=== PATIENT | male | born 1985 | race Caucasian/White ===

== ENCOUNTER 2020-09-29 23:53 | Emergency (ER) | payer SELFPAY ==
[~2020-09-29] VITALS: Ht 167.7 cm; Wt 63.5 kg
[2020-09-30] MEDS ORDERED: OXYMETAZOLINE (AFRIN) 0.05% NA 30 ML BTL ONE (01:15)
--- NOTE | 2020-09-30 01:23 | ED Cough/URI ---
General Chief Complaint: Cough/Cold/Flu Symptoms Stated Complaint: CONGESTION, Nursing Triage Note: TO ED VIA POV AND AMBULATORY TO ROOM 10 NEGATIVE PRESSURE ROOM UNDER COVID PUI PRECAUTIONS. PT C/O CONGESTION, RUNNY NOSE, COUGH. Sepsis Screen: No Definite Risk Source: patient Exam Limitations: no limitations History of Present Illness Date Seen by Provider: Sep 30, 2020 Time Seen by Provider: 00:15 Initial Comments This 35-year-old male presents to the emergency room with complaints of severe congestion, headache, runny nose, and mild cough for the past few days. He has tried taking ermr-ecn-bdsuucu allergy medications including Claritin. He cannot tell me exactly what the medications were or if they contain decongestants. He is noted to be hypertensive but he denies any history of hypertension. He has no known exposures to influenza or COVID-19. He denies fever, nausea, vomiting, diarrhea, or loss of taste or smell. Allergies and Home Medications Allergies Coded Allergies: No Known Drug Allergies (Unverified , 09/30/20) Patient Home Medication List Home Medication List Reviewed: Yes Review of Systems Review of Systems Constitutional: no symptoms reported EENTM: see HPI Respiratory: see HPI Cardiovascular: no symptoms reported Gastrointestinal: no symptoms reported Genitourinary: no symptoms reported Musculoskeletal: no symptoms reported Skin: no symptoms reported Psychiatric/Neurological: No Symptoms Reported Hematologic/Lymphatic: No Symptoms Reported Immunological/Allergic: no symptoms reported Past Lftvkmo-Kklcqa-Etgnof Hx Past Med/Social Hx: Reviewed Nursing Past Med/Soc Hx Patient Social History Alcohol Use: Regular Use Smoking Status: Current Someday Smoker Type Used: Cigarettes Recent Infectious Disease Expo: No Seasonal Allergies Seasonal Allergies: Yes Past Medical History Surgeries: No Respiratory: No Cardiac: No Neurological: No Genitourinary: No Gastrointestinal: No Musculoskeletal: No Endocrine: No HEENT: No Cancer: No Psychosocial: No Integumentary: No Physical Exam Vital Signs - First Documented 09/30/20 09/30/20 00:26 01:30 Temp 36.1 Pulse 82 Resp 16 B/P (MAP) 165/117 (133) Pulse Ox 99 O2 Delivery Room Air Capillary Refill : Less Than 3 Seconds Height: '" Weight: lbs. oz. 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, no motor/sensory deficits, alert, normal mood/affect, oriented x 3 Skin: normal color, warm/dry Progress/Results/Core Measures Suspected Sepsis Recent Fever Within 48 Hours: No Infection Criteria Present: Suspected New Infection New/Unexplained Altered Menta: No Sepsis Screen: No Definite Risk SIRS Temperature: Pulse: 82 Respiratory Rate: 16 Blood Pressure 165 /117 Mean: 133 Results/Orders Lab Results Laboratory Tests Test 09/30/20 00:20 Range/Units Coronavirus 2018 (SHREE) Negative Negative Micro Results Microbiology 09/30/20 Influenza Types A,B Antigen (ENRRIQUE) - Final, Complete My Orders Orders - KELLY ALAS MD Influenza A And B Antigens (09/30/20 00:26) Covid 19 Inhouse Test (09/30/20 00:26) Oxymetazoline 0.05% Nasal Fritch (Afrin 0. (09/30/20 09:00) Oxymetazoline 0.05% Nasal Fritch (Afrin 0. (09/30/20 01:15) Coronavirus Sars-Cov-2 So 2018 (09/30/20 01:28) Vital Signs/I&O 09/30/20 09/30/20 09/30/20 00:26 00:26 01:30 Temp 36.1 36.1 Pulse 82 78 Resp 16 16 B/P (MAP) 165/117 (133) 154/103 (133) Pulse Ox 99 O2 Delivery Room Air Room Air Room Air Capillary Refill : Less Than 3 Seconds Blood Pressure Mean: 133 Progress Note : Progress Note Rapid flu and rapid Covid were negative. Covid PCR was obtained. Patient was advised not to take any oral decongestant medications due to his hypertension. He was advised to follow-up in 1 to 2 weeks to have his blood pressure checked again. He was given Afrin to try as an alternative decongestant. See discharge instructions for discussion. Departure Impression Primary Impression: Upper respiratory infection Qualified Codes: J06.9 - Acute upper respiratory infection, unspecified Additional Impressions: Person under investigation for COVID-19 Nasal congestion Disposition: 01 HOME, SELF-CARE Condition: Against Medical Advice Departure-Patient Inst. Decision time for Depature: 01:18 Referrals: NO,LOCAL PHYSICIAN (PCP/Family) Primary Care Physician Patient Instructions: Coronavirus Disease 2019 (COVID-19) Overview, Viral Upper Respiratory Infection, Adult (DC) Add. Discharge Instructions: Your congestion is likely due to a viral upper respiratory infection. This may be COVID-19. You should remain in quarantine at home until you know the results of your COVID-19 test. This will likely take 24 to 48 hours to result. Your blood pressure is high. For this reason you should avoid any kxuj-olj-ekgfxas decongestant medications such as phenylephrine. As an alternative, you may use the Afrin nasal spray provided from the ER. Limit this nasal spray to 3 days only. Do not use beyond 3 days. You may continue using antihistamines such as Claritin for allergy symptoms. Make a follow-up appointment with a primary care provider in 1 to 2 weeks to have your blood pressure evaluated again. Your high blood pressure may be caused by lrqc-nzu-jwsuxkx decongestant medications, but your blood pressure needs to be monitored closely. Call with questions or concerns. Return to the emergency room if you have worsening symptoms. All discharge instructions reviewed with patient and/or family. Voiced understanding. Work/School Note: Work Release Form Date Seen in the Emergency Department: Sep 30, 2020 Return to Work: Oct 03, 2020 Other Restrictions Listed Below: If Covid negative, may return to work if no fever for 48 hours. Restrictions: If Covid positive, follow health department instructions for quarantine. KELLY ALAS MD Sep 30, 2020 01:23
[2020-09-30 01:30] VITALS: BP 154/103
[2020-09-30] MEDS ORDERED: OXYMETAZOLINE (AFRIN) 0.05% NA 30 ML BTL SCH (09:00)
== END 2020-09-30 01:30 | disposition home or self-care (01) ==
LOC: ER 23:57
DX: J06.9 Acute upper respiratory infection, unspecified (principal); F17.210 Nicotine dependence, cigarettes, uncomplicated; Z20.822 Contact with and (suspected) exposure to COVID-19
CPT/HCPCS: 87804; 99282; U0002; 87635

== ENCOUNTER 2021-06-29 17:33 | Emergency (ER) | payer SELFPAY ==
[~2021-06-29] VITALS: Ht 167 cm; Wt 68.0 kg
--- OUTSIDE RECORDS SUMMARY | 2021-06-29 17:44 | XMS REPORT | Clinical Summary ---
Author Author [facility] Address Unknown Phone Unavailable Care Team Providers Care Director Of Instructional Technology Name Role Phone PCP Unavailable Allergies Not on File Medications Not on file Active Problems Not on file Social History Date Tobacco Use Types Packs/Day Years Used Never Assessed Sex Assigned at Date Recorded Not on file Last Filed Vital Signs Not on file Plan of Treatment Health Maintenance Due Date Last Done Comments Varicella Vaccines (1 of 01/24/1988 2 - 2-dose childhood series) COVID-19 Vaccine (1) 01/24/1992 Hepatitis C Screening 2005 DTaP,Tdap,and Td Vaccines 2006 (1 - Tdap) MMR Vaccines-Adult 2006 Influenza Vaccine (#1) 2021 Pneumo-Vaccine: 65+Yrs (1 01/24/2052 of 1 - PPSV23) HIB Vaccines Aged Out No longer eligible based on patient's age to complete this topic IPV Vaccines Aged Out No longer eligible based on patient's age to complete this topic Meningococcal Vaccine Aged Out No longer eligib le based on patient's age to complete this topic Pneumo-Vaccine: Peds (0-5 Aged Out No longer el igible based on patient's age to Yrs) & At-Risk Patients complete this topic (6-64 Yrs) Rotavirus Vaccines Aged Out No longer eligible based on patient's age to complete this topic Results Not on filefrom Last 3 Months
[2021-06-29] MEDS ORDERED: ONDANSETRON 4 MG/2 ML (SDV) Z0FRAN IVP ONE (18:00)
[2021-06-29] MEDS ORDERED: LACTATED RINGERS 1,000 ML IV SCH (18:00)
[2021-06-29] MEDS ORDERED: fentaNYL INJ 100 MCG/2 ML AMP IVP ONE (18:00)
--- NOTE | 2021-06-29 18:02 | ED Abdominal Pain ---
General Chief Complaint: Abdominal/GI Problems Stated Complaint: ABD PAIN Source of Information: Patient Exam Limitations: No Limitations History of Present Illness Date Seen by Provider: Jun 29, 2021 Time Seen by Provider: 18:01 Initial Comments To ER with a 3-day history of epigastric abdominal pain associated with nausea. Last bowel movement today. History of this about 3 years ago, he went to the hospital and was given some medication and it went away. He is not sure what the diagnosis was. Timing/Duration: 2-3 Days Severity/Quality: Severe Location: Epigastric Radiation: No Radiation Activities at Onset: None Associated Symptoms: Nausea/Vomiting Allergies and Home Medications Allergies Coded Allergies: No Known Drug Allergies (Unverified , 09/30/20) Patient Home Medication List Home Medication List Reviewed: Yes Pantoprazole Sodium (Protonix) 40 Mg Tablet.dr, 40 MG PO DAILY Prescribed by: MARIBELL HERNANDEZ on 06/29/211926 Sucralfate (Carafate) 1 Gm Tablet, 1 GM PO QID Prescribed by: MARIBELL HERNANDEZ on 06/29/211926 Review of Systems Review of Systems Constitutional: see HPI EENTM: No Symptoms Reported Respiratory: No Symptoms Reported Cardiovascular: No Symptoms Reported Gastrointestinal: See HPI, Abdominal Pain, Nausea Genitourinary: No Symptoms Reported Musculoskeletal: no symptoms reported Skin: no symptoms reported Psychiatric/Neurological: No Symptoms Reported Endocrine: No Symptoms Reported Past Fcjtqqp-Rkeacm-Jjpvvd Hx Seasonal Allergies Seasonal Allergies: Yes Past Medical History Surgeries: No Respiratory: No Cardiac: No Neurological: No Genitourinary: No Gastrointestinal: No Musculoskeletal: No Endocrine: No HEENT: No Cancer: No Psychosocial: No Integumentary: No Physical Exam Vital Signs Vital Signs - First Documented 06/29/21 17:47 Temp 36.8 Pulse 65 Resp 18 B/P (MAP) 176/110 (132) Pulse Ox 98 Capillary Refill : Height/Weight/BMI Height: '" Weight: lbs. oz. kg; 22.00 BMI Method: General Appearance: WD/WN, no apparent distress Neck: non-tender, full range of motion Respiratory: no respiratory distress, no accessory muscle use Cardiovascular: regular rate, rhythm, no murmur Gastrointestinal: normal bowel sounds, soft, tenderness (Epigastric) Extremities: normal range of motion, non-tender Neurologic/Psychiatric: alert, normal mood/affect, oriented x 3 Skin: normal color, warm/dry Progress/Results/Core Measures Results/Orders Lab Results Laboratory Tests Test 06/29/21 17:50 06/29/21 18:12 Range/Units White Blood Count 11.7 H 4.3-11.0 10^3/uL Red Blood Count 5.09 4.30-5.52 10^6/uL Hemoglobin 15.6 13.3-17.7 g/dL Hematocrit 44 40-54 % Mean Corpuscular Volume 87 80-99 fL Mean Corpuscular Hemoglobin 31 25-34 pg Mean Corpuscular Hemoglobin Concent 35 32-36 g/dL Red Cell Distribution Width 12.4 10.0-14.5 % Platelet Count 281 130-400 10^3/uL Mean Platelet Volume 8.9 L 9.0-12.2 fL Immature Granulocyte % (Auto) 0 % Neutrophils (%) (Auto) 53 42-75 % Lymphocytes (%) (Auto) 24 12-44 % Monocytes (%) (Auto) 9 0-12 % Eosinophils (%) (Auto) 13 H 0-10 % Basophils (%) (Auto) 0 0-10 % Neutrophils # (Auto) 6.2 1.8-7.8 10^3/uL Lymphocytes # (Auto) 2.8 1.0-4.0 10^3/uL Monocytes # (Auto) 1.1 H 0.0-1.0 10^3/uL Eosinophils # (Auto) 1.5 H 0.0-0.3 10^3/uL Basophils # (Auto) 0.0 0.0-0.1 10^3/uL Immature Granulocyte # (Auto) 0.0 0.0-0.1 10^3/uL Neutrophils % (Manual) 53 % Lymphocytes % (Manual) 30 % Monocytes % (Manual) 8 % Eosinophils % (Manual) 9 % Blood Morphology Comment NORMAL Prothrombin Time 13.1 12.2-14.7 SEC INR Comment 1.0 0.8-1.4 Sodium Level 138 135-145 MMOL/L Potassium Level 3.6 3.6-5.0 MMOL/L Chloride Level 105 98-107 MMOL/L Carbon Dioxide Level 23 21-32 MMOL/L Anion Gap 10 5-14 MMOL/L Blood Urea Nitrogen 11 7-18 MG/DL Creatinine 0.75 0.60-1.30 MG/DL Estimat Glomerular Filtration Rate 119 BUN/Creatinine Ratio 15 Glucose Level 90 70-105 MG/DL Calcium Level 8.5 8.5-10.1 MG/DL Corrected Calcium 8.5 8.5-10.1 MG/DL Total Bilirubin 0.4 0.1-1.0 MG/DL Aspartate Amino Transf (AST/SGOT) 33 5-34 U/L Alanine Aminotransferase (ALT/SGPT) 39 0-55 U/L Alkaline Phosphatase 92 40-136 U/L Total Protein 6.9 6.4-8.2 GM/DL Albumin 4.0 3.2-4.5 GM/DL Lipase 26 8-78 U/L Urine Color YELLOW Urine Clarity CLEAR Urine pH 7.0 5-9 Urine Specific [place] 1.015 L 1.016-1.022 Urine Protein NEGATIVE NEGATIVE Urine Glucose (UA) NEGATIVE NEGATIVE Urine Ketones NEGATIVE NEGATIVE Urine Nitrite NEGATIVE NEGATIVE Urine Bilirubin NEGATIVE NEGATIVE Urine Urobilinogen 1.0 < = 1.0 MG/DL Urine Leukocyte Esterase NEGATIVE NEGATIVE Urine RBC (Auto) TRACE-I H NEGATIVE Urine RBC RARE /HPF Urine WBC NONE /HPF Urine Squamous Epithelial Cells RARE /HPF Urine Crystals NONE /LPF Urine Bacteria NEGATIVE /HPF Urine Casts NONE /LPF Urine Mucus NEGATIVE /LPF Urine Culture Indicated NO My Orders Orders - MARIBELL HERNANDEZ RISK AND INSURANCE CONSULTANT Lipase (06/29/21 17:57) Ua Culture If Indicated (06/29/21 17:57) Cbc With Automated Diff (06/29/21 17:57) Comprehensive Metabolic Panel (06/29/21 17:57) Ed Iv/Invasive Line Start (06/29/21 17:57) Lactated Ringers (Lr 1000 Ml Iv Solution (06/29/21 18:00) Ondansetron Injection (Zofran Injectio (06/29/21 18:00) Fentanyl Inj (Sublimaze Injection) (06/29/21 18:00) Protime With Inr (06/29/21 17:57) Ct Abdomen/Pelvis W (06/29/21 18:00) Manual Differential (06/29/21 17:50) Iohexol Injection (Omnipaque 350 Mg/Ml 1 (06/29/21 19:00) Received Contrast (Hold Metformin- Contr (06/29/21 19:00) Ns (Ivpb) (Sodium Chloride 0.9% Ivpb Bag (06/29/21 19:00) Antacid Suspension (Mylanta Suspension (06/29/21 19:30) Lidocaine 2% Viscous 15 Ml (Xylocaine Vi (06/29/21 19:30) Medications Given in ED Current Medications Medications Dose Ordered Sig/Lopez Route Start Time Stop Time Status Last Admin Dose Admin Al Hydrox/Mg Hydrox/Simethicone 30 ml ONCE ONCE PO 06/29/21 19:30 06/29/21 19:31 06/29/21 19:30 30 ML Fentanyl Citrate 50 mcg ONCE ONCE IVP 06/29/21 18:00 06/29/21 18:01 DC 06/29/21 18:19 50 MCG Iohexol 100 ml ONCE ONCE IV 06/29/21 19:00 06/29/21 19:01 DC 06/29/21 19:10 85 ML Lidocaine HCl 15 ml ONCE ONCE PO 06/29/21 19:30 06/29/21 19:31 06/29/21 19:29 15 ML Ondansetron HCl 8 mg ONCE ONCE IVP 06/29/21 18:00 06/29/21 18:01 DC 06/29/21 18:19 8 MG Sodium Chloride 100 ml ONCE ONCE IV 06/29/21 19:00 06/29/21 19:01 DC 06/29/21 19:10 80 ML Vital Signs/I&O 06/29/21 17:47 Temp 36.8 Pulse 65 Resp 18 B/P (MAP) 176/110 (132) Pulse Ox 98 Departure Communication (Admissions) NAME: JARON VIVAS [facility] REC#: [id number] PT STATUS: REG ER : 1985 PHYSICIAN: MARIBELL HERNANDEZ APRN ADMIT DATE: 06/29/21/ER Draft Date of Exam:06/29/21 CT ABDOMEN/PELVIS W EXAMINATION: CT abdomen and pelvis with intravenous contrast. TECHNIQUE: Multiple contiguous axial images were obtained through the abdomen and pelvis after the uneventful administration of intravenous contrast. All CT scans use one or more of the following dose optimizing techniques: automated exposure control, MA and/or KvP adjustment based on patient size and exam type or iterative reconstruction. HISTORY: Epigastric pain. COMPARISON: None available. FINDINGS: The heart is unremarkable. Dependent atelectasis is seen in the lung bases. There is hepatic steatosis. No focal hepatic lesions. The portal vein is patent. The gallbladder is unremarkable. The spleen, pancreas, adrenal glands, and kidneys have a normal appearance. There is no pathologically enlarged mesenteric or retroperitoneal adenopathy. There is wall thickening of the stomach along the greater curvature. The bowel loops are nondilated. The appendix is visualized in the right lower quadrant has a normal appearance. There is no free fluid or free air. No acute osseous abnormalities. There is no free air, loculated collection, or adenopathy in the pelvis. IMPRESSION: 1. Stomach wall thickening along the greater curvature of the stomach. This is suspicious for gastritis. No penetrating ulcers are identified. 2. Hepatic steatosis. Dictated on workstation # [id number] Dict: 06/29/211910 Trans: 06/29/211916 CV [id number] Interpreted by: LISETTE ORTEGA DO Electronically signed by: Impression Primary Impression: Gastritis Disposition: 01 HOME, SELF-CARE Condition: Stable Departure-Patient Inst. Decision time for Depature: 19:25 Referrals: NO,LOCAL PHYSICIAN (PCP) Primary Care Physician Patient Instructions: Gastritis ED Add. Discharge Instructions: 1. Medication as directed 2. Return to ER for concerns 3. Follow-up with your doctor next week All discharge instructions reviewed with patient and/or family. Voiced understanding. Scripts Sucralfate (Carafate) 1 Gm Tablet 1 GM PO QID, #40 TAB Prov: MARIBELL HERNANDEZ RISK AND INSURANCE CONSULTANT 06/29/21 Pantoprazole Sodium (Protonix) 40 Mg Tablet.dr 40 MG PO DAILY, #30 TAB Prov: MARIBELL HERNANDEZ RISK AND INSURANCE CONSULTANT 06/29/21 MARIBELL HERNANDEZ APRN Jun 29, 2021 18:02
[2021-06-29 18:04] LABS: BASOPHILS % (AUTO) 0 % (0-10); EOSINOPHILS # (AUTO) 1.5 10^3/uL (0.0-0.3); EOSINOPHILS % (AUTO) 13 % (0-10); HEMATOCRIT 44 % (40-54); HEMOGLOBIN 15.6 g/dL (13.3-17.7); LYMPHOCYTES # (AUTO) 2.8 10^3/uL (1.0-4.0); LYMPHOCYTES % (AUTO) 24 % (12-44); MEAN CORPUSCULAR HEMOGLOBIN 31 pg (25-34); MEAN CORPUSCULAR HGB CONC 35 g/dL (32-36); MEAN CORPUSCULAR VOLUME 87 fL (80-99); MEAN PLATELET VOLUME 8.9 fL (9.0-12.2); MONOCYTES # (AUTO) 1.1 10^3/uL (0.0-1.0); MONOCYTES % (AUTO) 9 % (0-12); NEUTROPHILS # (AUTO) 6.2 10^3/uL (1.8-7.8); NEUTROPHILS % (AUTO) 53 % (42-75); PLATELET COUNT 281 10^3/uL (130-400); WHITE BLOOD COUNT 11.7 10^3/uL (4.3-11.0)
[2021-06-29 18:13] LABS: POTASSIUM 3.6 MMOL/L (3.6-5.0)
[2021-06-29 18:14] LABS: CALCIUM 8.5 MG/DL (8.5-10.1)
[2021-06-29 18:16] LABS: BILIRUBIN,URINE NEGATIVE (NEGATIVE); CLARITY,URINE CLEAR; COLOR,URINE YELLOW; GLUCOSE, URINE (UA) NEGATIVE (NEGATIVE); KETONES,URINE NEGATIVE (NEGATIVE); LEUKOCYTE ESTERASE ,URINE NEGATIVE (NEGATIVE); NITRITE,URINE NEGATIVE (NEGATIVE); PROTEIN,URINE NEGATIVE (NEGATIVE)
[2021-06-29 18:16] LABS: TOTAL PROTEIN 6.9 GM/DL (6.4-8.2)
[2021-06-29 18:17] LABS: BILIRUBIN,TOTAL 0.4 MG/DL (0.1-1.0)
[2021-06-29 18:19] LABS: CREATININE SERUM 0.75 MG/DL (0.60-1.30); PROTHROMBIN TIME PATIENT 13.1 SEC (12.2-14.7)
[2021-06-29 18:40] LABS: BACTERIA,URINE NEGATIVE /HPF; RBC,URINE RARE /HPF; SQUAMOUS EPITHELIAL CELL,UR RARE /HPF
[2021-06-29] MEDS ORDERED: HOLD METFORMIN - RECEIVED CONTRAST 20 ML VIAL IV SCH (19:00)
[2021-06-29] MEDS ORDERED: NS 100 ML (IVPB) BAG IV ONE (19:00)
[2021-06-29] MEDS ORDERED: IOHEXOL 350 MG/ML 100 ML (OMNIPAQUE 350) VIAL IV ONE (19:00)
[2021-06-29 19:15] LABS: EOSINOPHILS % (MANUAL) 9 %; LYMPHOCYTES % (MANUAL) 30 %; MONOCYTES % (MANUAL) 8 %; NEUTROPHILS % (MANUAL) 53 %; RBC MORPH NORMAL
--- NOTE | 2021-06-29 19:18 | Diagnostic Imaging Report ---
EXAMINATION: CT abdomen and pelvis with intravenous contrast. TECHNIQUE: Multiple contiguous axial images were obtained through the abdomen and pelvis after the uneventful administration of intravenous contrast. All CT scans use one or more of the following dose optimizing techniques: automated exposure control, MA and/or KvP adjustment based on patient size and exam type or iterative reconstruction. HISTORY: Epigastric pain. COMPARISON: None available. FINDINGS: The heart is unremarkable. Dependent atelectasis is seen in the lung bases. There is hepatic steatosis. No focal hepatic lesions. The portal vein is patent. The gallbladder is unremarkable. The spleen, pancreas, adrenal glands, and kidneys have a normal appearance. There is no pathologically enlarged mesenteric or retroperitoneal adenopathy. There is wall thickening of the stomach along the greater curvature. The bowel loops are nondilated. The appendix is visualized in the right lower quadrant has a normal appearance. There is no free fluid or free air. No acute osseous abnormalities. There is no free air, loculated collection, or adenopathy in the pelvis. IMPRESSION: 1. Stomach wall thickening along the greater curvature of the stomach. This is suspicious for gastritis. No penetrating ulcers are identified. 2. Hepatic steatosis. Dictated by: Dictated on workstation # [id number]
[2021-06-29] MEDS ORDERED: SUCR1TAB36 PO (19:27)
[2021-06-29] MEDS ORDERED: PANT40TA2 PO (19:27)
[2021-06-29] MEDS ORDERED: ANTACID SUSP 30 ML UDC (MYLANTA) PO ONE (19:30)
[2021-06-29] MEDS ORDERED: LIDOCAINE 2% VISCOUS 15 ML UDC PO ONE (19:30)
[2021-06-29 19:32] VITALS: BP 156/99
== END 2021-06-29 19:36 | disposition home or self-care (01) ==
LOC: EDUNIT# 17:33 → ER 17:42
DX: K29.70 Gastritis, unspecified, without bleeding (principal)
CPT/HCPCS: 36415; 74177; 80053; 81000; 83690; 85007; 85027; 85610

== ENCOUNTER 2021-12-17 20:52 | Emergency (ER) | payer SELFPAY ==
[~2021-12-17] VITALS: Ht 170 cm; Wt 6537.0 kg
[~2021-12-17 20:52] MED LIST: PANT40TA2 PO; SUCR1TAB36 PO
[2021-12-17 21:00] VITALS: BP 191/131
[2021-12-17] MEDS ORDERED: NS IV 1000 ML 1,000 ML IV STA (21:12)
[2021-12-17] MEDS ORDERED: PANTOPRAZOLE 40 MG (PROTONIX) VIAL IV ONE (21:15)
[2021-12-17] MEDS ORDERED: ONDANSETRON 4 MG/2 ML (SDV) Z0FRAN IVP ONE (21:15)
[2021-12-17 21:24] LABS: BILIRUBIN,URINE NEGATIVE (NEGATIVE); CLARITY,URINE CLEAR; COLOR,URINE YELLOW; GLUCOSE, URINE (UA) NEGATIVE (NEGATIVE); KETONES,URINE NEGATIVE (NEGATIVE); LEUKOCYTE ESTERASE ,URINE NEGATIVE (NEGATIVE); NITRITE,URINE NEGATIVE (NEGATIVE); PROTEIN,URINE TRACE (NEGATIVE)
[2021-12-17 21:30] LABS: BACTERIA,URINE NEGATIVE /HPF; WBC,URINE 0-2 /HPF
[2021-12-17 21:38] LABS: AMPHETAMINE SCREEN, URINE NEGATIVE (NEGATIVE); BARBITURATE SCREEN URINE NEGATIVE (NEGATIVE); BENZODIAZEPINES SCREEN URINE NEGATIVE (NEGATIVE); CANNABINOID SCREEN, URINE NEGATIVE (NEGATIVE); COCAINE SCREEN URINE NEGATIVE (NEGATIVE); METHADONE STAT NEGATIVE (NEGATIVE); OPIATE SCREEN URINE NEGATIVE (NEGATIVE); OXYCODONE STAT NEGATIVE (NEGATIVE); PROPOXYPHENE STAT NEGATIVE (NEGATIVE); TRICYCLIC ANTIDEPRESSANTS SCRE NEGATIVE (NEGATIVE)
--- NOTE | 2021-12-17 21:39 | ED Abdominal Pain ---
General Stated Complaint: ABD PAIN Source of Information: Patient Exam Limitations: No Limitations (RAUL GRADY) History of Present Illness Date Seen by Provider: Dec 17, 2021 Time Seen by Provider: 21:37 Initial Comments Patient is a 36-year-old male with a history of alcohol use who reports to ED with upper abdominal pain. Pain is described as sharp and constant over the past week. States he has been drinking alcohol smoking cigarettes daily since this past Saturday. Patient cannot recall how much beer he has been drinking. Reports a sharp pain in upper abdomen and continues drinking for pain relief. Reports 1 episode of vomiting today with 2 episodes of diarrhea today. Denies any blood or mucus. No history of previous abdominal surgery. History of gastric ulcers and denies take any current medication. Denies excessive NSAID use. Normal urination. Not concern for his alcohol consumption's. Denies taking thing for his pain. Patient in mild to moderate distress on arrival. No recent travels or surgeries. Denies chest pain, shortness of breath, cough, headache, dizziness (RAUL GRADY) Allergies and Home Medications Allergies Coded Allergies: No Known Drug Allergies (Unverified , 09/30/20) Patient Home Medication List Home Medication List Reviewed: Yes (RAUL GRADY) Pantoprazole Sodium (Protonix) 40 Mg Tablet.dr, 40 MG PO DAILY Prescribed by: MARIBELL HERNANDEZ on 06/29/211926 Pantoprazole Sodium (Protonix) 40 Mg Tablet.dr, 40 MG PO DAILY Prescribed by: AZ RICHARDSON on 12/17/212247 Sucralfate (Carafate) 1 Gm Tablet, 1 GM PO QID Prescribed by: MARIBELL HERNANDEZ on 06/29/211926 Sucralfate (Carafate) 1 Gram Tablet, 1 GM PO QID Prescribed by: AZ RICHARDSON on 12/17/212247 Review of Systems Review of Systems Constitutional: No chills, No diaphoresis EENTM: No Eye Pain Respiratory: Denies Cough, Denies Orthopnea, Denies Shortness of Air Cardiovascular: Denies Chest Pain Gastrointestinal: Abdominal Pain, Diarrhea, Vomiting Genitourinary: Denies Burning, Denies Discharge Musculoskeletal: No back pain, No joint pain Skin: No change in color, No change in hair/nails Psychiatric/Neurological: Denies Anxiety (RAUL GRADY) All Other Systems Reviewed Negative Unless Noted: Yes (RAUL GRADY) Past Urclfbt-Gnlehg-Fvgidb Hx Seasonal Allergies Seasonal Allergies: Yes (RAUL GRADY) Past Medical History Surgeries: No Respiratory: No Cardiac: No Neurological: No Genitourinary: No Gastrointestinal: No Musculoskeletal: No Endocrine: No HEENT: No Cancer: No Psychosocial: No Integumentary: No (RAUL GRADY) Physical Exam Vital Signs Vital Signs - First Documented 12/17/21 21:00 Temp 37.6 Pulse 76 Resp 20 B/P (MAP) 191/131 (151) Pulse Ox 99 O2 Delivery Room Air (HEMAL HARTA K DO) Vital Signs Capillary Refill : (RAUL GRADY) Height/Weight/BMI Height: '" Weight: lbs. oz. kg; 24.00 BMI Method: General Appearance: WD/WN, no apparent distress HEENT: PERRL/EOMI, normal ENT inspection, TMs normal, pharynx normal Neck: non-tender, full range of motion, supple, normal inspection Respiratory: chest non-tender, lungs clear, normal breath sounds, no respiratory distress, no accessory muscle use Cardiovascular: regular rate, rhythm, no edema, no gallop, no JVD, no murmur Gastrointestinal: normal bowel sounds, soft, other (Epigastric tenderness on palpation. Normal bowel sounds throughout. No rebound or guarding) Extremities: normal range of motion, non-tender, normal inspection, no pedal edema, no calf tenderness Back: normal inspection, no CVA tenderness, no vertebral tenderness Neurologic/Psychiatric: political consultant II-XII nml as tested, no motor/sensory deficits, alert, normal mood/affect, oriented x 3 (RAUL GRADY) Progress/Results/Core Measures Results/Orders Lab Results Laboratory Tests Test 12/17/21 21:18 12/17/21 21:50 Range/Units Urine Color YELLOW Urine Clarity CLEAR Urine pH 6.0 5-9 Urine Specific [place] 1.020 1.016-1.022 Urine Protein TRACE H NEGATIVE Urine Glucose (UA) NEGATIVE NEGATIVE Urine Ketones NEGATIVE NEGATIVE Urine Nitrite NEGATIVE NEGATIVE Urine Bilirubin NEGATIVE NEGATIVE Urine Urobilinogen 0.2 < = 1.0 MG/DL Urine Leukocyte Esterase NEGATIVE NEGATIVE Urine RBC (Auto) 1+ H NEGATIVE Urine RBC 2-5 H /HPF Urine WBC 0-2 /HPF Urine Squamous Epithelial Cells NONE /HPF Urine Renal Epithelial Cells NONE /HPF Urine Crystals NONE /LPF Urine Bacteria NEGATIVE /HPF Urine Casts NONE /LPF Urine Mucus LARGE H /LPF Urine Culture Indicated NO Urine Opiates Screen NEGATIVE NEGATIVE Urine Oxycodone Screen NEGATIVE NEGATIVE Urine Methadone Screen NEGATIVE NEGATIVE Urine Propoxyphene Screen NEGATIVE NEGATIVE Urine Barbiturates Screen NEGATIVE NEGATIVE Ur Tricyclic Antidepressants Screen NEGATIVE NEGATIVE Urine Phencyclidine Screen NEGATIVE NEGATIVE Urine Amphetamines Screen NEGATIVE NEGATIVE Urine Methamphetamines Screen NEGATIVE NEGATIVE Urine Benzodiazepines Screen NEGATIVE NEGATIVE Urine Cocaine Screen NEGATIVE NEGATIVE Urine Cannabinoids Screen NEGATIVE NEGATIVE White Blood Count 10.9 4.3-11.0 10^3/uL Red Blood Count 5.92 H 4.30-5.52 10^6/uL Hemoglobin 17.9 H 13.3-17.7 g/dL Hematocrit 50 40-54 % Mean Corpuscular Volume 85 80-99 fL Mean Corpuscular Hemoglobin 30 25-34 pg Mean Corpuscular Hemoglobin Concent 36 32-36 g/dL Red Cell Distribution Width 12.6 10.0-14.5 % Platelet Count 266 130-400 10^3/uL Mean Platelet Volume 8.8 L 9.0-12.2 fL Immature Granulocyte % (Auto) 1 % Neutrophils (%) (Auto) 76 H 42-75 % Lymphocytes (%) (Auto) 12 12-44 % Monocytes (%) (Auto) 8 0-12 % Eosinophils (%) (Auto) 3 0-10 % Basophils (%) (Auto) 0 0-10 % Neutrophils # (Auto) 8.3 H 1.8-7.8 10^3/uL Lymphocytes # (Auto) 1.3 1.0-4.0 10^3/uL Monocytes # (Auto) 0.8 0.0-1.0 10^3/uL Eosinophils # (Auto) 0.3 0.0-0.3 10^3/uL Basophils # (Auto) 0.0 0.0-0.1 10^3/uL Immature Granulocyte # (Auto) 0.1 0.0-0.1 10^3/uL Sodium Level 134 L 135-145 MMOL/L Potassium Level 3.5 L 3.6-5.0 MMOL/L Chloride Level 101 98-107 MMOL/L Carbon Dioxide Level 21 21-32 MMOL/L Anion Gap 12 5-14 MMOL/L Blood Urea Nitrogen 10 7-18 MG/DL Creatinine 0.77 0.60-1.30 MG/DL Estimat Glomerular Filtration Rate 120 BUN/Creatinine Ratio 13 Glucose Level 108 H 70-105 MG/DL Calcium Level 9.0 8.5-10.1 MG/DL Corrected Calcium 8.7 8.5-10.1 MG/DL Total Bilirubin 0.6 0.1-1.0 MG/DL Aspartate Amino Transf (AST/SGOT) 27 5-34 U/L Alanine Aminotransferase (ALT/SGPT) 35 0-55 U/L Alkaline Phosphatase 97 40-136 U/L C-Reactive Protein High Sensitivity 1.22 H 0.00-0.50 MG/DL Total Protein 7.3 6.4-8.2 GM/DL Albumin 4.4 3.2-4.5 GM/DL Lipase 13 8-78 U/L Serum Alcohol < 10 <10 MG/DL (GOYO HART DO) Medications Given in ED Current Medications Medications Dose Ordered Sig/Lopez Route Start Time Stop Time Status Last Admin Dose Admin Iohexol 100 ml ONCE ONCE IV 12/17/21 22:15 12/17/21 22:16 DC 12/17/21 22:09 85 ML Ondansetron HCl 4 mg ONCE ONCE IVP 12/17/21 21:15 12/17/21 21:16 DC 12/17/21 21:48 4 MG Pantoprazole 40 mg ONCE ONCE IV 12/17/21 21:15 12/17/21 21:16 DC 12/17/21 21:49 40 MG Promethazine HCl 25 mg ONCE ONCE IVP 12/17/21 22:30 12/17/21 22:31 DC 12/17/21 22:33 25 MG Sodium Chloride 10 ml NEEDED PRN IV 12/17/21 22:15 12/17/21 23:04 DC 12/17/21 22:09 10 ML Sodium Chloride 100 ml ONCE ONCE IV 12/17/21 22:15 12/17/21 22:16 DC 12/17/21 22:09 80 ML (GOYO HART DO) Vital Signs/I&O 12/17/21 21:00 Temp 37.6 Pulse 76 Resp 20 B/P (MAP) 191/131 (151) Pulse Ox 99 O2 Delivery Room Air (TANNERGOYO Ulises NGUYỄN) Departure Communication (PCP) Patient with normal white blood count, liver enzymes and pancreatic enzymes. Pain in the upper abdomen and lower abdomen. He states he has been drinking beer unclear the amount daily for the past week. History of gastric ulcers and gastritis. Vomiting today. Patient was given Zofran and a liter of fluid. Patient was slightly dehydrated. Was given a dose of IV Protonix and IV fentanyl with improvement of pain. Patient was in moderate distress on arrival and had tenderness on palpation CT scan was ordered. CT scan was unremarkable for any type of acute abnormality. Patient's symptoms are more likely gastritis and may have a gastric ulcer. He has been on Protonix and Carafate in the past with improvement. Has not been taking his medication which I will prescribe and refill. Would likely benefit follow-up with GI for further evaluation if needing a EGD. Discussed stopping his alcohol which is likely causing his pain. Avoid any NSAIDs. Discussed diet changes. Patient denies history of alcohol withdrawal seizures but has been drinking since 21 years of age. Patient did vomited while in the CT scanner. Was given a second dose of Phenergan. Tolerating p.o. fluids. Afebrile. Patient was hypertensive here. Discussed starting patient on blood pressure medication as he was hypertensive with his last visit. He refused any blood pressure medication. Refused treating his blood pressure here discussed the risks and complications of sustaining blood pressure such as stroke, cardiac disease, end organ damage. Patient knowledges. Recommend following up outpatient only with critical access hospital or a primary care physician to establish care and further evaluation. Patient acknowledges. Family at bedside is agrees with plan of action. Patient blood pressure at discharge was 173/118. Denies headache, visual changes, chest pain, shortness of breath. No evidence of kidney failure (RAUL GRADY) Impression Primary Impression: Abdominal pain Disposition: 01 HOME, SELF-CARE Condition: Stable Departure-Patient Inst. Decision time for Depature: 22:43 (RAUL GRADY) Referrals: [facility]/JEFFERY BLAND MD NO,LOCAL PHYSICIAN (PCP) Primary Care Physician Patient Instructions: Abdominal Pain, Adult ED Scripts Sucralfate (Carafate) 1 Gram Tablet 1 GM PO QID, #40 TAB Prov: RAUL GRADY 12/17/21 Pantoprazole Sodium (Protonix) 40 Mg Tablet. 40 MG PO DAILY, #20 TAB Prov: RAUL GRADY 12/17/21 ATTENDING PHYSICIAN NOTE: I WAS PHYSICALLY PRESENT ER PHYSICIAN, BUT I WAS NOT INVOLVED IN ANY DECISION MAKING OR ANY CARE OF THIS PATIENT. (GOYO HART DO) RAUL GRADY Dec 17, 2021 21:39 GOYO HART DO Dec 18, 2021 03:26
[2021-12-17 22:03] LABS: BASOPHILS % (AUTO) 0 % (0-10); EOSINOPHILS # (AUTO) 0.3 10^3/uL (0.0-0.3); EOSINOPHILS % (AUTO) 3 % (0-10); HEMATOCRIT 50 % (40-54); HEMOGLOBIN 17.9 g/dL (13.3-17.7); LYMPHOCYTES # (AUTO) 1.3 10^3/uL (1.0-4.0); LYMPHOCYTES % (AUTO) 12 % (12-44); MEAN CORPUSCULAR HEMOGLOBIN 30 pg (25-34); MEAN CORPUSCULAR HGB CONC 36 g/dL (32-36); MEAN CORPUSCULAR VOLUME 85 fL (80-99); MEAN PLATELET VOLUME 8.8 fL (9.0-12.2); MONOCYTES # (AUTO) 0.8 10^3/uL (0.0-1.0); MONOCYTES % (AUTO) 8 % (0-12); NEUTROPHILS # (AUTO) 8.3 10^3/uL (1.8-7.8); NEUTROPHILS % (AUTO) 76 % (42-75); PLATELET COUNT 266 10^3/uL (130-400); WHITE BLOOD COUNT 10.9 10^3/uL (4.3-11.0)
[2021-12-17 22:11] LABS: ALBUMIN 4.4 GM/DL (3.2-4.5); CHLORIDE 101 MMOL/L (98-107); POTASSIUM 3.5 MMOL/L (3.6-5.0); SODIUM 134 MMOL/L (135-145)
[2021-12-17 22:13] LABS: GLUCOSE 108 MG/DL (70-105); TOTAL PROTEIN 7.3 GM/DL (6.4-8.2)
[2021-12-17 22:14] LABS: CARBON DIOXIDE 21 MMOL/L (21-32)
[2021-12-17 22:15] LABS: BILIRUBIN,TOTAL 0.6 MG/DL (0.1-1.0)
[2021-12-17] MEDS ORDERED: IOHEXOL 350 MG/ML 100 ML (OMNIPAQUE 350) VIAL IV ONE (22:15)
[2021-12-17] MEDS ORDERED: CATHETER FLUSH 10 ML SYR IV PRN (22:15)
[2021-12-17] MEDS ORDERED: NS 100 ML (IVPB) BAG IV ONE (22:15)
[2021-12-17 22:17] LABS: ALKALINE PHOSPHATASE 97 U/L (40-136); CREATININE SERUM 0.77 MG/DL (0.60-1.30); GFR ESTIMATED 120
[2021-12-17 22:18] LABS: BUN/CREATININE RATIO 13
[2021-12-17 22:20] LABS: ALANINE AMINOTRANSFERASE 35 U/L (0-55)
[2021-12-17 22:21] LABS: LIPASE 13 U/L (8-78)
[2021-12-17] MEDS ORDERED: fentaNYL INJ 100 MCG/2 ML AMP IVP STA (22:23)
[2021-12-17] MEDS ORDERED: PROMETHAZINE INJ 25 MG/ML (PHENERGAN) AMP IVP ONE (22:30)
--- NOTE | 2021-12-17 22:31 | Diagnostic Imaging Report ---
PROCEDURE: CT abdomen and pelvis with contrast. TECHNIQUE: Multiple contiguous axial images were obtained through the abdomen and pelvis after administration of intravenous contrast. Auto Exposure Controls were utilized during the CT exam to meet ALARA standards for radiation dose reduction. All CT scans use one or more of the following dose optimizing techniques: automated exposure control, MA and/or KvP adjustment based on patient size and exam type or iterative reconstruction. INDICATION: Epigastric pain. Lung bases are clear. Liver appears normal. Gallbladder appears normal. Pancreas appears normal. Spleen is not enlarged. Kidneys and adrenals appear normal. Small bowel is not dilated. Appendix is unremarkable. Colon appears normal. Urinary bladder is normal. Prostate is not enlarged. There is no intraperitoneal free air or free fluid. IMPRESSION: Unremarkable CT abdomen and pelvis. Dictated by: Dictated on workstation # [id number]
[2021-12-17] MEDS ORDERED: RX-ONDANSETRON 4 MG ODT (ZOFRAN) PPK #4 PO ONE (22:45)
[2021-12-17] MEDS ORDERED: PANT40TA2 PO (22:48)
[2021-12-17] MEDS ORDERED: SUCR1TAB36 PO (22:48)
== END 2021-12-17 23:04 | disposition home or self-care (01) ==
LOC: EDUNIT# 20:52 → ER 20:54
DX: R10.13 Epigastric pain (principal); F10.20 Alcohol dependence, uncomplicated; F17.210 Nicotine dependence, cigarettes, uncomplicated; Z87.19 Personal history of other diseases of the digestive system; Y90.0 Blood alcohol level of less than 20 mg/100 ml
CPT/HCPCS: 74177; 80053; 80306; 81000; 83690; 85025; 86141; 99283; G0480; 36415; 80320

== ENCOUNTER 2023-06-19 04:16 | Emergency (ER) | payer SELFPAY ==
[~2023-06-19] VITALS: Ht 167.7 cm; Wt 64.1 kg
--- NOTE | 2023-06-19 04:41 | ED EENT ---
History of Present Illness General Stated Complaint: JAW PAIN Source: patient History of Present Illness Date Seen by Provider: Jun 19, 2023 Time Seen by Provider: 04:30 Initial Comments PT ARRIVES VIA POV FROM HOME WITH FEMALE S.O. C/O DENTAL PAIN PT HAD CROWNS PLACED ON ALL OF HIS BOTTOM TEETH LAST WEEK IN [place], [place]. PT STATES HE WAS NOT GIVEN ANY PRESCRIPTIONS FOR PAIN OR ANY ANTIBIOTICS PT C/O SEVERE PAIN TO ALL OF HIS LOWER TEETH SINCE THE DAY HE HAD THIS DONE--PT STATES IT WAS DONE ON Saturday06/14/23. PT STATES NO RELIEF WITH TYLENOL AND IBUPROFEN. PT STATES HE HAS NOT SLEPT FOR 2 NIGHTS DUE TO PAIN HE HAS NOT FOLLOWED UP WITH ANYONE FOR THIS PROBLEM AND HAS NOT ATTEMPTED TO MAKE AN APPOINTMENT WITH ANYONE NO FEVER NO SWELLING TO FACE PT HAD CROWNS PLACED ON ALL OF HIS UPPER TEETH ( EXCEPT THE TOP 2 WISDOM TEETH) IN [place] IN JANUARY, AND DID NOT HAVE THIS PROBLEM. HE GIVES NO EXPLANATION TO WHY HE WENT TO [place], [place] THIS TIME. PT LIVES HERE IN [place], DOES NOT HAVE A DENTIST HERE PT IS ESTABLISHED WITH [facility] FOR MEDICAL CARE. PT STATES HE HAS HTN, BUT HAS NOT BEEN TAKING HIS MEDICATION, HE STATES HE JUST STARTED TAKING IT AGAIN ON Saturday06/18/23 PCP: ROSALEE Allergies and Home Medications Allergies Coded Allergies: No Known Drug Allergies (Unverified , 09/30/20) Patient Home Medication List Home Medication List Reviewed: Yes Amoxicillin/Potassium Clav (Amox Tr-K Clv 875-125 mg Tab) 875 Mg-125 Mg Tablet, 1 EACH PO BID Prescribed by: GOYO HART on 06/19/23449 Cyclobenzaprine HCl (Cyclobenzaprine HCl) 10 Mg Tablet, 10 MG PO Q8H PRN for SPASMS Prescribed by: GOYO HART on 06/19/23449 Ketorolac Tromethamine (Ketorolac Tromethamine) 10 Mg Tablet, 10 MG PO Q6H Prescribed by: GOYO HART on 06/19/23449 Pantoprazole Sodium (Protonix) 40 Mg Tablet., 40 MG PO DAILY Prescribed by: MARIBELL HERNANDEZ on 06/29/211926 Pantoprazole Sodium (Protonix) 40 Mg Tablet., 40 MG PO DAILY Prescribed by: AZ RICHARDSON on 12/17/212247 Sucralfate (Carafate) 1 Gm Tablet, 1 GM PO QID Prescribed by: MARIBELL HERNANDEZ on 06/29/211926 Sucralfate (Carafate) 1 Gram Tablet, 1 GM PO QID Prescribed by: AZ RICHARDSON on 12/17/212247 Tramadol HCl (Tramadol HCl) 50 Mg Tablet, 50 MG PO Q4H Prescribed by: GOYO HART on 06/19/23 0451 Review of Systems Review of Systems Constitutional: no symptoms reported Eyes: No Symptoms Reported Ears: No Symptoms Reported Nose: no symptoms reported Mouth: see HPI Throat: no symptoms reported Respiratory: no symptoms reported Cardiovascular: no symptoms reported Gastrointestinal: no symptoms reported Musculoskeletal: no symptoms reported Skin: no symptoms reported Neurological: No Symptoms Reported Hematologic/Lymphatic: No Symptoms Reported Immunological/Allergic: no symptoms reported Past Cqrajar-Qvhfcy-Jnlksl Hx Patient Social History Tobacco Use?: Yes Tobacco type used: Cigarettes Smoking Status: Current Everyday Smoker Substance use?: No Alcohol Use?: Yes Alcohol type: Beer Alcohol Frequency: Daily Seasonal Allergies Seasonal Allergies: Yes Past Medical History Surgeries: No Respiratory: No Cardiac: No Neurological: No Genitourinary: No Gastrointestinal: No Musculoskeletal: No Endocrine: No HEENT: Yes (CROWNS PUT ON ALL TEETH) Cancer: No Psychosocial: No Integumentary: No Blood Disorders: No Physical Exam Vital Signs Vital Signs - First Documented 06/19/23 04:45 Temp 37.2 Pulse 85 Resp 22 B/P (MAP) 210/139 (162) Pulse Ox 97 O2 Delivery Room Air Height, Weight, BMI Height: '" Weight: lbs. oz. kg; 2261.00 BMI Method: General Appearance: WD/WN, no apparent distress, other (ANXIOUS, TALKING NON- STOP AND COMPLAINING OF PAIN ) Eyes: bilateral eye PERRL, bilateral eye EOMI Ears: bilateral ear TM normal Mouth/Throat: other (ALL TEETH WITH CAPS/CROWNS, EXCEPT THE TOP TWO 3RD MOLARS. THERE IS MILD GENERALIZED GUM INFLAMMATION, AND HAS DIFFUSE TENDERNESS TO ALL LOWER TEETH ON PERCUSSION, BUT NO PINPOINT TENDERNESS, AND NO EVIDENCE OF ABSCESS. THERE IS NO FACIAL SWELLING. HE REPORTS THERE IS SOME MAL-OCCLUSION SINCE HE HAD THE LOWER CROWNS PLACED. ) Neck: normal inspection Cardiovascular: regular rate, rhythm Respiratory: normal breath sounds Neurologic/Psychiatric: strip tank tender II-XII nml as tested, no motor/sensory deficits, alert, normal mood/affect, oriented x 3 Skin: normal color (), warm/dry Progress/Results/Core Measures Results/Orders My Orders Orders - GOYO HART DO Ceftriaxone Iv/Im (Ceftriaxone Iv/Im) (06/19/23 04:45) Lidocaine 1% Inj 20 Ml (Xylocaine 1% Inj (06/19/23 04:45) Ketorolac Injection (Ketorolac Injection (06/19/23 04:45) Orphenadrine Inj (Ed Only) (Orphenadrine (06/19/23 04:45) Medications Given in ED Current Medications Medications Dose Ordered Sig/Lopez Route Start Time Stop Time Status Last Admin Dose Admin Ceftriaxone Sodium 1,000 mg ONCE ONCE IM 06/19/23 04:45 06/19/23 04:46 DC 06/19/23 05:03 1,000 MG Ketorolac Tromethamine 60 mg ONCE ONCE IM 06/19/23 04:45 06/19/23 04:46 DC 06/19/23 05:02 60 MG Lidocaine HCl 2.1 ml ONCE ONCE INJ 06/19/23 04:45 06/19/23 04:46 DC 06/19/23 05:06 2.1 ML Orphenadrine Citrate 60 mg ONCE ONCE IM 06/19/23 04:45 06/19/23 04:46 DC 06/19/23 05:02 60 MG Vital Signs/I&O 06/19/23 06/19/23 04:45 05:20 Temp 37.2 37.0 Pulse 85 87 Resp 22 20 B/P (MAP) 210/139 (162) 156/117 Pulse Ox 97 97 O2 Delivery Room Air Room Air Progress Progress Note : Progress Note VITALS ON ARRIVAL: TEMP 37.2, HR 85, RR 22, BP 210/139, REPEAT BP 156/117, O2 SAT 97% ON ROOM AIR GIVEN: -ROCEPHIN -TORADOL -NORFLEX NO DETERIORATION IN PT'S CONDITION DURING ER STAY DISCUSSED IMPORTANCE OF FOLLOW UP WITH DENTIST FOR FURTHER CARE. ALSO DISCUSSED IMPORTANCE OF TAKING BP MEDICATIONS EVERY DAY AND NEED FOR FOLLOW UP WITH [facility] FOR THIS PROBLEM WELL. Departure Impression Primary Impression: POST PROCEDURE DENTAL PAIN Disposition: HOME, SELF-CARE Condition: Stable Departure-Patient Inst. Decision time for Depature: 04:43 Referrals: LYSSA KEENE DO [facility] Patient Instructions: Dental Pain (DC) Add. Discharge Instructions: FOLLOW UP WITH DENTIST OF CHOICE SOON POSSIBLE--CALL TODAY TO SCHEDULE AN APPOINTMENT OR GO TO [facility] Scripts Tramadol HCl (Tramadol HCl) 50 Mg Tablet 50 MG PO Q4H for Pain, #12 TAB Prov: GOYO HART DO 06/19/23 Cyclobenzaprine HCl (Cyclobenzaprine HCl) 10 Mg Tablet 10 MG PO Q8H PRN for SPASMS, #15 TAB 0 Refills Prov: GOYO HART DO 06/19/23 Ketorolac Tromethamine (Ketorolac Tromethamine) 10 Mg Tablet 10 MG PO Q6H for Pain, #15 TAB Prov: GOYO HART DO 06/19/23 Amoxicillin/Potassium Clav (Amox Tr-K Clv 875-125 mg Tab) 875 Mg-125 Mg Tablet 1 EACH PO BID for 15 Days, #30 TAB Prov: GOYO HART DO 06/19/23 GOYO HART DO Jun 19, 2023 04:41
[2023-06-19] MEDS ORDERED: cefTRIAXone 1,000 MG VIAL IV/IM IM ONE (04:45)
[2023-06-19] MEDS ORDERED: LIDOCAINE 1% INJ 20 ML VIAL INJ ONE (04:45)
[2023-06-19] MEDS ORDERED: ORPHENADRINE 60 MG/2 ML AMP (ED ONLY) IM ONE (04:45)
[2023-06-19] MEDS ORDERED: KETOROLAC INJ 60 MG/2 ML VIAL IM ONE (04:45)
[2023-06-19] MEDS ORDERED: KETO10TA PO (04:50)
[2023-06-19] MEDS ORDERED: CYCL10TA25 PO (04:50)
[2023-06-19] MEDS ORDERED: AMOX1TAB12 PO (04:50)
[2023-06-19] MEDS ORDERED: TRAM50TA3 PO (04:50)
[2023-06-19 05:20] VITALS: BP 156/117
[2023-06-20] MEDS ORDERED: METO-352 PO (22:02)
[2023-06-20] MEDS ORDERED: CLIN-144 PO (22:02)
== END 2023-06-19 05:20 | disposition home or self-care (01) ==
LOC: EDUNIT# 04:16 → ER 04:18
DX: G89.18 Other acute postprocedural pain (principal); K08.89 Other specified disorders of teeth and supporting structures; F17.210 Nicotine dependence, cigarettes, uncomplicated
CPT/HCPCS: 99284

== ENCOUNTER 2023-06-20 21:34 | Emergency (ER) | payer SELFPAY ==
[~2023-06-20] VITALS: Ht 167.7 cm; Wt 65.9 kg
[~2023-06-20 21:34] MED LIST changes: +AMOX1TAB12 PO; +CYCL10TA25 PO; +KETO10TA PO; +TRAM50TA3 PO
[2023-06-20] MEDS ORDERED: dexAMETHasone INJ 10 MG/ML 1 ML VIAL IM ONE (22:00)
[2023-06-20] MEDS ORDERED: METO-352 PO (22:02)
[2023-06-20] MEDS ORDERED: CLIN-144 PO (22:02)
--- NOTE | 2023-06-20 22:05 | ED EENT ---
History of Present Illness General Chief Complaint: Oral/Throat Problems Stated Complaint: SORE/SWOLLEN THROAT Source: patient Exam Limitations: no limitations History of Present Illness Date Seen by Provider: Jun 20, 2023 Time Seen by Provider: 21:41 Initial Comments Here with report of throat swelling and or mild swelling after taking his medication tonight. He took Augmentin 875, tramadol 50, cyclobenzaprine 10 mg and Toradol 10 mg tablet. He has not had problems with any of these medicines before but noted the swelling after taking these tonight. He did have dental ca ps placed in [place] recently and was seen yesterday for mouth pain. He was started on the medications and states he is overall feeling much better today. He did not have problems with Placement previously in [place]. 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 Patient does have history of hypertension that is not well-controlled with lisinopril. Timing/Duration: this evening Severity: mild Associated Symptoms: No cough, No fever, No nasal congestion/drainage Allergies and Home Medications Allergies Coded Allergies: No Known Drug Allergies (Unverified , 09/30/20) Patient Home Medication List Home Medication List Reviewed: Yes Amoxicillin/Potassium Clav (Amox Tr-K Clv 875-125 mg Tab) 875 Mg-125 Mg Tablet, 1 EACH PO BID Prescribed by: GOYO HART on 06/19/23449 Clindamycin HCl (Clindamycin HCl) 300 Mg Capsule, 300 MG PO QID Prescribed by: KANDICE WOLF on 06/20/232201 Cyclobenzaprine HCl (Cyclobenzaprine HCl) 10 Mg Tablet, 10 MG PO Q8H PRN for SPASMS Prescribed by: GOYO HART on 06/19/23449 Ketorolac Tromethamine (Ketorolac Tromethamine) 10 Mg Tablet, 10 MG PO Q6H Prescribed by: GOYO HART on 06/19/23449 Metoprolol Succinate (Toprol Xl) 50 Mg Tab.er.24h, 50 MG PO DAILY Prescribed by: KANDICE WOLF on 06/20/232201 Pantoprazole Sodium (Protonix) 40 Mg Tablet., 40 MG PO DAILY Prescribed by: MARIBELL HERNANDEZ on 06/29/211926 Pantoprazole Sodium (Protonix) 40 Mg Tablet.dr, 40 MG PO DAILY Prescribed by: [place] RICHARDSON on 12/17/212247 Sucralfate (Carafate) 1 Gm Tablet, 1 GM PO QID Prescribed by: MARIBELL HERNANDEZ on 06/29/211926 Sucralfate (Carafate) 1 Gram Tablet, 1 GM PO QID Prescribed by: [place] RICHARDSON on 12/17/212247 Tramadol HCl (Tramadol HCl) 50 Mg Tablet, 50 MG PO Q4H Prescribed by: GOYO HART on 06/19/23 0451 Review of Systems Review of Systems Constitutional: see HPI; No chills, No fever Eyes: No Symptoms Reported Ears: No Symptoms Reported Nose: no symptoms reported Mouth: see HPI Throat: see HPI Respiratory: No cough, No short of breath Cardiovascular: No chest pain Musculoskeletal: no symptoms reported Skin: no symptoms reported Past Tugcyrw-Gegevw-Lhqqqz Hx Patient Social History Tobacco Use?: No Tobacco type used: Cigarettes Smoking Status: Former Smoker (Quit 2 days ago) Immunizations Up To Date First/Initial COVID19 Vaccinat: N/A Seasonal Allergies Seasonal Allergies: Yes Past Medical History Surgery/Hospitalization HX: Teeth Surgeries: No Respiratory: No Cardiac: Yes Hypertension Neurological: No Genitourinary: No Gastrointestinal: No Musculoskeletal: No Endocrine: No HEENT: Yes (CROWNS PUT ON ALL TEETH) Cancer: No Psychosocial: No Integumentary: No Blood Disorders: No Family Medical History Reviewed Nursing Family Hx No Pertinent Family Hx Physical Exam Vital Signs Vital Signs - First Documented 06/20/23 21:44 Temp 36.5 Pulse 84 Resp 97 B/P (MAP) 207/146 (166) O2 Delivery Room Air Height, Weight, BMI Height: '" Weight: lbs. oz. kg; 22.00 BMI Method: General Appearance: WD/WN, no apparent distress Eyes: bilateral eye normal inspection, bilateral eye PERRL, bilateral eye EOMI Ears: bilateral ear auricle normal, bilateral ear canal normal, bilateral ear TM normal Nose: normal inspection Mouth/Throat: pharynx normal; No pharynx swelling, No tongue swollen, No tons illar exudate, No tonsillar swelling Neck: full range of motion, supple Cardiovascular: regular rate, rhythm, no murmur Respiratory: lungs clear, normal breath sounds Neurologic/Psychiatric: alert, oriented x 3 Skin: normal color, warm/dry; No rash Progress/Results/Core Measures Results/Orders My Orders Orders - KANDICE WOLF MD Dexamethasone Injection (Dexamethasone (06/20/23 22:00) Metoprolol Succinate (Xl) Tab (Metoprolo (06/20/23 22:00) Medications Given in ED Current Medications Medications Dose Ordered Sig/Lopez Route Start Time Stop Time Status Last Admin Dose Admin Dexamethasone Sodium Phosphate 10 mg ONCE ONCE IM 06/20/23 22:00 06/20/23 22:01 DC 06/20/23 22:01 10 MG Vital Signs/I&O 06/20/23 21:44 Temp 36.5 Pulse 84 Resp 97 B/P (MAP) 207/146 (166) O2 Delivery Room Air Progress Progress Note : Progress Note Seen and evaluated. I did review all of patient's medications and the visit from yesterday here. Of the 4 new medications, Augmentin would be the most likely culprit for throat swelling after taking and we will stop that. I will go ahead and give a dose of Decadron 10 mg IM now to help with the possibility of allergic reaction. We will stop the Augmentin and consider starting the clindamycin if he is having any pain. We discussed his other medications as well. He is currently on lisinopril for hypertension which is not very effective as his blood pressures 180s to 200s systolic over 120s to 130s. Will initiate Toprol-XL 50 mg p.o. now and write outpatient prescription for that as I think he is undertreated and he will follow-up with his doctor for further evaluation regarding blood pressure. All of this was discussed with patient and family who agree. Monitor patient. 2237: Overall doing a little better. Blood pressure is declining some to 173 systolic. I did discuss with he and significant other the importance of follow-up for his blood pressure and he verbalized understanding. Discharged home with return precautions. Patient verbalized understanding instructions and agreement with plan. Departure Impression Primary Impression: Allergic reaction Qualified Codes: T78.40XA - Allergy, unspecified, initial encounter Additional Impression: Uncontrolled hypertension Disposition: HOME, SELF-CARE Condition: Improved Departure-Patient Inst. Decision time for Depature: 22:37 Referrals: [facility] (PCP/Family) Primary Care Physician Patient Instructions: High Blood Pressure (DC), Allergic Reaction ED Add. Discharge Instructions: All discharge instructions reviewed with patient and/or family. Voiced understanding. Your swelling may be related to allergic reaction to the Augmentin (amoxicillin/clavulanic acid). Stop taking this medication. If you are continuing to have pain, you may take the other antibiotic (clindamycin 300 mg) as prescribed. Continue previous blood pressure medication as prescribed. Start new blood pressure medicine as prescribed. It is very important that you follow-up with your doctor within the next month for recheck and further evaluation and to evaluate your blood pressure. Return for worse pain, fever, vomiting, weakness, breathing problems, swelling or other concerns as needed. Scripts Clindamycin HCl (Clindamycin HCl) 300 Mg Capsule 300 MG PO QID for 7 Days, #28 CAP Prov: KANDICE WOLF MD 06/20/23 Metoprolol Succinate (Toprol Xl) 50 Mg Tab.er.24h 50 MG PO DAILY for 30 Days, #30 TAB 1 Refill Prov: KANDICE WOLF MD 06/20/23 Copy Copies To 1: TONE ELLIS MD, TIMOTHY D MD Jun 20, 2023 22:04
[2023-06-20 22:37] VITALS: BP 173/143
[2023-06-25] MEDS ORDERED: METO50TA7 PO (14:56)
[2023-06-25] MEDS ORDERED: ACET-2267 PO (14:56)
[2023-06-25] MEDS ORDERED: CLIN-144 PO (14:56)
== END 2023-06-20 22:37 | disposition home or self-care (01) ==
LOC: EDUNIT# 21:34 → ER 21:38
DX: T78.40XA Allergy, unspecified, initial encounter (principal); I10 Essential (primary) hypertension; F17.210 Nicotine dependence, cigarettes, uncomplicated; X58.XXXA Exposure to other specified factors, initial encounter
CPT/HCPCS: 96372; 99284